=== PATIENT | male | born 1975 | race Two or more races ===

== ENCOUNTER 2017-12-24 08:26 | Outpatient (CLI) | payer OTHER | END 2017-12-24 08:33 | disposition home or self-care (01) | LOC: RAD 501 08:26 | DX: M54.5 Low back pain (principal); I10 Essential (primary) hypertension; E78.89 Other lipoprotein metabolism disorders; E55.9 Vitamin D deficiency, unspecified; E66.8 Other obesity; F20.1 Disorganized schizophrenia ==